=== PATIENT | male | born 2000 | race Caucasian/White ===

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

== ENCOUNTER → 2024-08-24 | Outpatient (CLI) | payer OTHER | LOC: RAD 17:02 | DX: M79.671 Pain in right foot (principal) ==